=== PATIENT | female | born 1970 | race African-American/Black ===

== ENCOUNTER 2017-11-22 11:41 | Inpatient (IN) | payer OTHER ==
[~2017-11-22] VITALS: Ht 160 cm; Wt 63.5 kg
--- NOTE | ~2017-11-22 | EKG ---
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1970 Requested By: Tamara Combs Order Number: [id number] MD: Syed Krause Measurements Intervals Slater Rate: 62 P: 57 NH: 192 QRS: 86 QRSD: 96 T: 64 QT: 418 QTc: 425 Interpretive Statements Sinus rhythm Low voltage, extremity leads Compared to ECG 07/05/2014 15:26:19 No significant change was found Electronically Signed On 11-22-2017 16:39:08 CDT by Syed Krause [email or web address] <ELECTRONICALLY SIGNED> By: Syed Krause MD, [facility] 11/22/17 1639 130 Syed Krause MD, [facility] /EPI
[~2017-11-22 11:41] MED LIST: B12INJ IM; DULCOLAX5 MG; FLEXERIL PO; HYDROCODONE-AP1 EAC6 PO; NUEDEXTA 20-101 EACH PO; PHENERGAN 25 MG25 M1 PO; REGLAN 10 MG TA10 MG PO; TOPAMAX 25 MG T25 M1 PO; ULTRAM 50MG TAB50 MG PO; VITAMIN D 5050000 I1 PO; VITAMIN E400 UNIT PO; XANAX1 MG PO; ZPAK PO
[2017-11-22 11:42] VITALS: BP 138/81
[2017-11-22 12:41] LABS: ABSOLUTE NEUTROPHILS 2.8 thou/uL (1.4-8.2); BASOPHILS 1.1 % (0.0-2.0); EOSINOPHILS 0.9 % (0.0-3.0); HEMATOCRIT 35.9 % (37.0-47.0); LYMPHOCYTES 41.1 % (24.0-44.0); MCH 29.6 pg (26.0-34.0); MCHC 33.5 g/dL (28.0-37.0); MCV 88.5 fL (80.0-100.0); MONOCYTES 7.1 % (1.0-8.0); PLATELET COUNT 221 thou/uL (150-400); POLYS 49.8 % (36.0-66.0); RBC 4.05 mil/uL (4.20-5.00); RDW 14.6 % (10.5-14.5); WBC 5.5 thou/uL (4.0-11.0)
[2017-11-22 12:47] LABS: URINE BILIRUBIN NEGATIVE (Negative); URINE BLOOD NEGATIVE (Negative); URINE CLARITY CLEAR; URINE COLOR YELLOW; URINE GLUCOSE-RANDOM* NEGATIVE (Negative); URINE KETONES NEGATIVE (Negative); URINE LEUKOCYTES-REFLEX NEGATIVE (Negative); URINE NITRITE-REFLEX NEGATIVE (Negative); URINE PROTEIN (DIPSTICK) NEGATIVE (Negative); URINE UROBILINOGEN 0.2 E.U./dl (0.2-1.0)
[2017-11-22 12:50] LABS: CREATININE 0.6 mg/dL (0.6-1.0)
[2017-11-22 12:52] LABS: POTASSIUM 2.9 mmol/L (3.5-5.1)
[2017-11-22 14:15] VITALS: BP 138/78
[2017-11-22 14:25] VITALS: BP 124/79
[2017-11-22] MEDS ORDERED: NEXIUM40 MG PO (14:36)
[2017-11-22 15:00] VITALS: BP 137/93
[2017-11-22 19:14] VITALS: BP 131/71
[2017-11-22 19:54] VITALS: BP 131/71
== END 2017-11-22 20:13 | disposition left against medical advice (07) | DRG 552 ==
LOC: ER 11:41 → EROBS 13:48 → 4E 14:37
PROVIDERS: Student in an Organized Health Care Education/Training Program
DX: M54.9 Dorsalgia, unspecified (principal); M79.7 Fibromyalgia; G43.909 Migraine, unspecified, not intractable, without status migrainosus; J45.909 Unspecified asthma, uncomplicated; E87.6 Hypokalemia; R10.9 Unspecified abdominal pain; M62.838 Other muscle spasm; R11.0 Nausea; Z85.3 Personal history of malignant neoplasm of breast; Z85.43 Personal history of malignant neoplasm of ovary; Z92.3 Personal history of irradiation; Z92.21 Personal history of antineoplastic chemotherapy; Z90.710 Acquired absence of both cervix and uterus; Z86.73 Personal history of transient ischemic attack (TIA), and cerebral infarction without residual deficits; Z90.13 Acquired absence of bilateral breasts and nipples; Z90.49 Acquired absence of other specified parts of digestive tract; Z79.899 Other long term (current) drug therapy; Z88.8 Allergy status to other drugs, medicaments and biological substances; Z91.041 Radiographic dye allergy status; Z87.891 Personal history of nicotine dependence
CPT/HCPCS: 10183